=== PATIENT | male | born 1970 | race Caucasian/White ===

== ENCOUNTER 2023-08-26 22:42 | Emergency (ER) | payer SELFPAY ==
[~2023-08-26] VITALS: Ht 167.6 cm; Wt 124.7 kg
[2023-08-26 23:00] VITALS: BP 153/82; PULSE 76; RESP 17; TEMP 98; O2SAT 98
[2023-08-26] MEDS ORDERED: NAPR-54 PO (23:48)
[2023-08-26 23:51] VITALS: BP 153/82; PULSE 76; RESP 17; TEMP 98; O2SAT 98
== END 2023-08-26 23:52 | disposition home or self-care (01) ==
LOC: MED 22:42
DX: M13.862 Other specified arthritis, left knee (principal); Z79.899 Other long term (current) drug therapy
CPT/HCPCS: 73562; 99283